=== PATIENT | female | born 1970 | race Caucasian/White ===

== ENCOUNTER → 2020-09-02 | Outpatient (CLI) | payer OTHER ==
--- NOTE | 2020-09-02 09:56 | Diagnostic Imaging Report ---
PROCEDURE: MRI lumbar spine. TECHNIQUE: Multiplanar, multisequence MRI of the lumbar spine was performed without contrast. INDICATION: Chronic back pain. COMPARISON: 05/05/2013. FINDINGS: The lumbar statures are normal and the alignment is anatomic. The marrow signal intensity is unremarkable. The lower thoracic cord and the conus appear normal. There is normal dispersal of the nerves of the cauda equina. There was no paravertebral mass, hemorrhage, or fluid collection. The ligamentous structures are intact. There is some mild disc desiccation, stature loss, and mild annular bulge of the L5-S1 disc without focal herniation or substantial resultant stenosis. There is some facet arthrosis at the L4-L5 and L5-S1 levels on a chronic degenerative basis. This disease shows mild progression from the prior exam but no significant stenosis. IMPRESSION: Mild increased lower lumbar spondylosis and facet arthrosis but no significant canal, foraminal, or recess stenosis. Normal alignment. No marrow edema. No acute appearing abnormality. Dictated by: Dictated on workstation # [id number]
== END ==
LOC: RAD 08:00
PROVIDERS: ATTEND Nurse Practitioner Family
DX: M47.816 Spondylosis without myelopathy or radiculopathy, lumbar region (principal)
CPT/HCPCS: 72148